=== PATIENT | male | born 1960 | race Caucasian/White ===

== ENCOUNTER 2018-09-24 18:47 | Emergency (ER) | payer BC ==
[2018-09-24 18:53] VITALS: TEMP 97.6; BMI 28.5
--- NOTE | 2018-09-24 19:31 | PDOC ---
History of Present Illness <Carley Selbysy - Last Filed: 09/24/18 20:00> - General History Source: Patient Exam Limitations: No Limitations <VerodaveKatherin I - Last Filed: 09/24/18 20:36> - General Chief Complaint: Chest Pain Stated Complaint: CHEST BURNING Time Seen by Provider: 09/24/18 19:09 - History of Present Illness Initial Comments: 09/24/18 20:00 The patient is a 57 year old male, with no significant PMH who presents to the emergency department with a burning sensation to the chest for the past 3 days. Patient endorses having significant stressors recently. Patient admits to having a similar burning sensation in the past for which he did not seek medical evaluation. Patient denies any personal cardiac history or known cardiac history in his family. Patient is a non-smoker. Patient denies having abnormal EKGs in the past. Patient has not taken any antacids at home. The patient denies chest pain, shortness of breath, headache and dizziness. Denies fever, chills, nausea, vomit, diarrhea and constipation. Denies dysuria, frequency, urgency and hematuria. Allergies: NKA Past surgical history: None reported. Social history: No reported alcohol, drug or cigarette use. Adult ROS General: No fevers or chills, no weakness, no weight loss HEENT: No change in vision. No sore throat,. No ear pain CardioVascular: No chest pain or shortness of breath Respiratory:No cough, or wheezing. Gastrointestinal: no nausea, vomiting, diarrhea or constipation, No rectal bleeding Genitourinary: No dysuria, hematuria, or frequency Musculoskeletal: No joint or muscle pain or swelling Neurologic: No headache, vertigo, dizziness or loss of consciousness Psychiatric: nor depression Skin: No rashes or easy bruising Endocrine: no increased thirst or abnormal weight change Allergic: no skin or latex allergy All other systems reviewed and normal Adult Exam: General: Well-nourished well-developed individual, no acute distress HEENT: Throat: Normal, tonsils normal, no erythema or exudate Neck: Supple, no meningeal signs, no lymphadenopathy Eyes::Pupils equal reactive and round, extraocular motion intact Chest: Nontender to palpation Cardiac: S1-S2 normal, regular rate and rhythm, no murmurs rubs or gallops Respiratory: Lungs clear to auscultation bilateral Abdomen: Soft, nondistended, normal bowel sounds, nontender to palpation diffusely Extremities: Warm, dry, no cyanosis, clubbing, or edema Skin: No rashes Neuro: Alert and oriented x3, nonfocal exam, grossly intact, normal gait Psych: Normal mood and affect (Kelley Selby) 09/24/18 19:56 A portion of this note was documented by scribe services under my direction. I have reviewed the details of the note, within reason, and agree with the documentation with the following case summary and management plan written by me. Patient treated in the ED. Nursing notes are reviewed and incorporated into the medical decision-making. Vital signs reviewed. Medical decision making: This is a 57-year-old male who comes in complaining of a burning sensation in his epigastric lower chest area substernally for several weeks now. The patient says he is under a lot of stress and has not taken anything for the discomfort. Patient said he has had similar discomfort in the past but never had it evaluated. Patient denies any cardiac risk factors including no history of hypertension. However it is noted the patient is quite hypertensive here in the emergency room with a blood pressure 177 systolic. Patient denies history of high cholesterol or diabetes. Patient denies family history of coronary artery disease. Patient is not a smoker and denies any use of recreational drugs. Workup initiated including EKG, CBC, comp, chest x-ray. EKG shows normal sinus rhythm at a rate of [address] changes laterally. There is also a prolonged QT. 09/24/18 20:34 Patient's symptoms completely resolved with an antacid/Pepcid. Patient feels better. The patient's workup was negative for any acute pathology. Patient's heart score is 3. The patient discharged home told to follow-up with his doctor for further evaluation. Patient also told to get an antacid and take it as needed if symptoms return (Katherin De La Cruz I) Past History <Kelley Selby - Last Filed: 09/24/18 20:00> - Past Medical History COPD: No GI Disorders: Yes (GASTRITIS) Disorders: Yes (KIDNEY STONE) - Immunization History Td Vaccination: Yes Immunization Up to Date: No - Suicide/Smoking/Psychosocial Hx Smoking Status: No Smoking History: Never smoked Have you smoked in the past 12 months: No Number of Cigarettes Smoked Daily: 0 Information on smoking cessation initiated: No Hx Alcohol Use: No Drug/Substance Use Hx: No Substance Use Type: None <Katherin De La Cruz I - Last Filed: 09/24/18 20:36> - Past Medical History Allergies/Adverse Reactions: Allergies Allergy/AdvReac Type Severity Reaction Status Date / Time No Known Drug Allergies Allergy Verified 09/24/18 18:49 ENVIRONMENTAL Allergy Uncoded 09/24/18 18:49 Home Medications: Ambulatory Orders NK [No Known Home Medication] 09/24/18 - Vital Signs Last Vital Signs Temp Pulse Resp BP Pulse Ox 97.6 F 82 18 170/88 99 09/24/18 18:47 09/24/18 18:47 09/24/18 18:47 09/24/18 18:47 09/24/18 18:47 Heart Score/ECG Review - History History: Slightly suspicious - Electrocardiogram EKG: Non specific repolarization disturbance - Age Age: 45-65 - Risk Factors Risk Factors Heart Score: Yes Hx Hypertension Based on the list above the patient has:: 1-2 risk factors - Troponin Troponin: </= normal limit - Score Heart Score - Total: 3 <Katherin De La Cruz I - Last Filed: 09/24/18 20:36> ED Treatment Course - LABORATORY CBC & Chemistry Diagram: 09/24/18 19:15 09/24/18 19:15 <Kelley Selby - Last Filed: 09/24/18 20:00> - LABORATORY CBC & Chemistry Diagram: 09/24/18 19:15 09/24/18 19:15 <Katherin De La Cruz I - Last Filed: 09/24/18 20:36> - ADDITIONAL ORDERS Additional order review: Laboratory Results 09/24/18 09/24/18 09/24/18 19:15 19:15 19:15 Sodium 138 Potassium 3.7 Chloride 103 Carbon Dioxide 26 Anion Gap 9 BUN 16 Creatinine 0.8 Creat Clearance w eGFR > 60 Random Glucose 91 D Calcium 9.0 Total Bilirubin 0.7 AST 23 D ALT 26 Alkaline Phosphatase 52 Creatine Kinase 104 Troponin I < 0.03 Total Protein 7.2 Albumin 4.3 09/24/18 19:15 RBC 5.34 MCV 89.8 MCHC 33.5 RDW 12.0 MPV 9.4 Neutrophils % 56.3 Lymphocytes % 31.1 D Monocytes % 7.7 Eosinophils % 4.3 D Basophils % 0.6 - Medications Given in the ED: ED Medications Discontinued Medications Generic Name Dose Route Start Last Admin Trade Name Chloé PRN Reason Stop Dose Admin Famotidine/Sodium Chloride 20 mg in 50 mls @ 100 mls/hr 09/24/18 19:37 19:50 Pepcid 20 Mg Premixed Ivpb - IVPB 09/24/18 20:06 100 mls/hr ONCE ONE Administration *DC/Admit/Observation/Transfer <Kelley Selby - Last Filed: 09/24/18 20:00> - Discharge Dispostion Decision to Admit order: No <Katherin De La Cruz I - Last Filed: 09/24/18 20:36> Diagnosis at time of Disposition: Epigastric discomfort - Discharge Dispostion Disposition: HOME Condition at time of disposition: Stable - Referrals Referrals: Segundo Kapadia MD [Primary Care Provider] - - Patient Instructions Printed Discharge Instructions: DI for Atypical Chest Pain Additional Instructions: Get herself some Pepcid or Tums or Zantac and take as directed on the box if the burning sensation returns. Call you doctor in the morning get an appointment to follow-up.. Return to the emergency department immediately with ANY new, persistent or worsening symptoms. Continue any medications as previously prescribed by your physician. You should follow up with your primary doctor as soon as possible regarding today's emergency department visit. . Please make sure your doctor reviews the results of your emergency evaluation. Thank you for coming to the Emergency Department today for your care. It was a pleasure to see you today. Please note that your evaluation is INCOMPLETE until you follow-up with your doctor. - Post Discharge Activity
[2018-09-24] MEDS ORDERED: FAMOTIDINE 20 MG/50 ML IVPB 20 MG/50 ML MG IVPB ONE ×2 (19:37→19:47)
[2018-09-24 20:01] LABS: BASO % 0.6 % (0-2.0); EOS % 4.3 % (0-4.5); HEMOGLOBIN 16.1 GM/dl (11.7-16.9); LYMPH % 31.1 % (8-40); MCH 30.1 pg (25.7-33.7); MCHC 33.5 g/dl (32.0-35.9); MEAN CELL VOLUME 89.8 fl (80-96); MEAN PLT VOLUME 9.4 fl (7.5-11.1); MONO % 7.7 % (3.8-10.2); NEUT % 56.3 % (42.8-82.8); PLATELET COUNT 229 K/MM3 (134-434); RBC 5.34 M/mm3 (4.00-5.60); WHITE BLOOD COUNT 9.4 K/mm3 (4.0-10.8)
[2018-09-24 20:10] LABS: ALBUMIN 4.3 g/dl (3.5-5.0); ALK PHOS 52 U/L (32-92); ANION GAP 9 MMOL/L (8-16); BILIRUBIN,TOTAL 0.7 mg/dl (0.2-1.0); BLOOD UREA NITROGEN 16 mg/dl (7-18); CHLORIDE 103 mmol/L (98-107); CO2 26 mmol/L (22-28); CREATININE 0.8 mg/dl (0.6-1.3); GLUCOSE,RANDOM 91 mg/dl (74-106); POTASSIUM 3.7 mmol/L (3.5-5.1); SGOT/AST 23 U/L (10-42); SGPT/ALT 26 U/L (10-40); SODIUM 138 mmol/L (136-145); TOT PROT 7.2 g/dl (6.4-8.3)
[2018-09-24 20:38] VITALS: BP 147/88; PULSE 76
--- NOTE | 2018-09-25 12:36 | EKG ---
Test Reason : Blood Pressure : / mmHG Vent. Rate : 087 BPM Atrial Rate : 087 BPM P-R Int : 134 ms QRS Dur : 082 ms QT Int : 402 ms P-R-T Axes : 071 -03 013 degrees QTc Int : 483 ms NORMAL SINUS RHYTHM PROLONGED QT ABNORMAL ECG Confirmed by MD NEERAJ, CORDELIA ([id number]) on 09/25/2018 12:36:35 PM Referred By: DR CARVER Confirmed By:CORDELIA PICKARD MD
== END 2018-09-24 20:45 | disposition home or self-care (01) ==
LOC: FER 18:47
PROC: 3E033GC Introduction of Other Therapeutic Substance into Peripheral Vein, Percutaneous Approach (ICD-10-PCS; principal; 2018-09-24)
DX: R10.13 Epigastric pain (principal)
CPT/HCPCS: 36415; 80053; 82550; 84484; 85025; 93005; 99285-25

== ENCOUNTER 2018-12-09 13:26 | Emergency (ER) | payer BC ==
[2018-12-09 13:33] VITALS: BP 134/89; PULSE 80; TEMP 97.8; BMI 26.9
--- NOTE | 2018-12-09 13:54 | PDOC ---
History of Present Illness - General Chief Complaint: Pain Stated Complaint: RT FLANK PAIN Time Seen by Provider: 12/09/18 13:53 - History of Present Illness Initial Comments: 12/09/18 16:11 Chief complaint: Epigastric and right upper quadrant pain with radiation to the right flank and right mid back today. History of present illness: Symptoms as noted above accompanied by dyspepsia, belching, which the patient frequently experiences due to stress. 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 Review of systems: No dysuria frequency urgency hematuria. No vomiting or diarrhea. No chest pain, shortness of breath. No fever/chills. Remainder systems reviewed and negative Past medical history: Kidney stone several years ago, resolved spontaneously. GERD. Anxiety. Social/family history as noted above otherwise negative. No tobacco alcohol or nonprescription drugs Physical exam: Alert and oriented well-developed well-nourished no acute distress cheerful and cooperative Afebrile, vital signs normal PERRLA, fundi benign, ENT clear Neck supple without bruit mass or nodes Chest clear CV regular without murmur rub or gallop Abdomen nondistended. Bowel sounds normal. Soft without mass tenderness organomegaly. No CVAT Neurological intact exam: No discharge. No urethral lesions. Testes descended bilaterally. No hernias. Impression: Dyspepsia, possible early gastritis, secondary to underlying disease and aggravated stress Plan: Antacids and proton pump inhibitor. [place] diet. Return to ER if symptoms worsen otherwise follow-up with primary physician and GI specialist as directed Past History - Past Medical History Allergies/Adverse Reactions: Allergies Allergy/AdvReac Type Severity Reaction Status Date / Time No Known Drug Allergies Allergy Verified 12/09/18 13:27 ENVIRONMENTAL Allergy Uncoded 12/09/18 13:27 Home Medications: Ambulatory Orders Amlodipine Besylate 5 mg PO DAILY 12/09/18 COPD: No GI Disorders: Yes (GASTRITIS) Disorders: Yes (KIDNEY STONE) HTN: Yes - Immunization History Td Vaccination: Yes Immunization Up to Date: No - Suicide/Smoking/Psychosocial Hx Smoking Status: No Smoking History: Never smoked Have you smoked in the past 12 months: No Number of Cigarettes Smoked Daily: 0 Information on smoking cessation initiated: No Hx Alcohol Use: No Drug/Substance Use Hx: No Substance Use Type: None *Physical Exam - Vital Signs Last Vital Signs Temp Pulse Resp BP Pulse Ox 97.8 F 80 20 134/89 98 12/09/18 13:26 12/09/18 13:26 12/09/18 13:26 12/09/18 13:26 12/09/18 13:26 Moderate Sedation - Procedure Monitoring Vital Signs: Procedure Monitoring Vital Signs Temperature 97.8 F 12/09/18 13:26 Pulse Rate 80 12/09/18 13:26 Respiratory Rate 20 12/09/18 13:26 Blood Pressure 134/89 12/09/18 13:26 O2 Sat by Pulse Oximetry (%) 98 12/09/18 13:26 *DC/Admit/Observation/Transfer Diagnosis at time of Disposition: Gastritis Qualifiers: Gastritis type: unspecified gastritis Chronicity: acute Gastritis bleeding: without bleeding Qualified Code(s): K29.00 - Acute gastritis without bleeding - Discharge Dispostion Disposition: HOME Condition at time of disposition: Stable Decision to Admit order: No - Referrals Referrals: Pj Garibay MD [Staff Physician] - - Patient Instructions Printed Discharge Instructions: DI for Gastritis Additional Instructions: Light diet. Omeprazole daily as directed. Return ER if symptoms worsen otherwise follow-up primary physician and GI specialist as directed. - Post Discharge Activity
[2018-12-09 14:19] LABS: PH,URINE 5.5 (4.5-8); URINE APPEARANCE Clear; URINE BILIRUBIN Negative (NEGATIVE); URINE COLOR Yellow; URINE GLUCOSE (UA) Negative (NEGATIVE); URINE KETONE Negative (NEGATIVE); URINE LEUK ESTERASE Negative (NEGATIVE); URINE NITRITE Negative (NEGATIVE); URINE PROTEIN Negative (NEGATIVE); URINE UROBILINOGEN 0.2 (0.2-1.0)
[2018-12-09 14:36] LABS: URINE WBC 0-2 (0-2)
== END 2018-12-09 14:54 | disposition home or self-care (01) ==
LOC: FER 13:26
DX: K29.00 Acute gastritis without bleeding (principal); I10 Essential (primary) hypertension
CPT/HCPCS: 81003; 81015; 99281-25

== ENCOUNTER 2019-05-01 21:17 | Emergency (ER) | payer BC ==
[2019-05-01 21:22] VITALS: BP 143/85; PULSE 97; TEMP 98.5; BMI 26.9
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
== END 2019-05-01 23:44 | disposition home or self-care (01) ==
LOC: JERFT 21:17 → JER 21:17
DX: S80.12XA Contusion of left lower leg, initial encounter (principal); I10 Essential (primary) hypertension; N20.0 Calculus of kidney
CPT/HCPCS: 93971-TC; 99282-25

== ENCOUNTER 2021-06-11 04:44 | Day surgery (SDC) | payer BC ==
[2021-06-10 15:03] VITALS: BMI 28.3
[2021-06-11] MEDS ORDERED: BUPIVACAINE HCL/PF 0.5% (5MG/ML) 10 ML VIAL ONE (07:41)
[2021-06-11] MEDS ORDERED: BUPIVACAINE HCL/PF 0.5% (5MG/ML) 10 ML VIAL IJ ONE (13:25)
[2021-06-11] MEDS ORDERED: IOHEXOL 180 MG/1 ML ML IJ ONE (13:25)
[2021-06-11 13:49] VITALS: BP 148/83; PULSE 76; TEMP 98.6
== END 2021-06-11 13:50 | disposition home or self-care (01) ==
LOC: JASU-SURG 04:44
PROVIDERS: ATTEND Pain Medicine Pain Medicine
PROC: BR14YZZ Fluoroscopy of Cervical Facet Joint(s) using Other Contrast (ICD-10-PCS; 2021-06-11)
PROC: 3E0T3BZ Introduction of Anesthetic Agent into Peripheral Nerves and Plexi, Percutaneous Approach (ICD-10-PCS; principal; 2021-06-11 12:00)
DX: M47.812 Spondylosis without myelopathy or radiculopathy, cervical region (principal)
CPT/HCPCS: 76000-TC-FY

== ENCOUNTER 2024-11-05 08:27 | Observation (INO) | payer BC, OTHER ==
[2024-11-05 08:39] VITALS: BMI 25.7
[2024-11-05] MEDS: ALBUTEROL SO4 2.5/IPRATROPIUM 0.5 INH SOL 3 ML VIAL.NEB. NEB SCH ×3 (09:06→17:59)
[2024-11-05 10:34] LABS: HEMATOCRIT 42.5 % (35.4-49); HEMOGLOBIN 14.3 G/dL (11.7-16.9); MCH 30.4 pg (25.7-33.7); MCHC 33.7 g/dl (32.0-35.9); MEAN CELL VOLUME 90.3 fl (80-96); PLATELET COUNT 208.2 10^3/uL (134-434); RBC 4.71 10^6/uL (4.00-5.60); RDW 13.9 % (11.9-15.9); WHITE BLOOD COUNT 13.1 10^3/uL (4.0-10.8)
[2024-11-05 10:35] LABS: ALBUMIN 3.8 g/dl (3.4-5.0); BILIRUBIN,TOTAL 0.7 mg/dl (0.2-1); CALCIUM 8.7 mg/dl (8.5-10.1); CREATININE 0.9 mg/dl (0.6-1.3); POTASSIUM 3.9 mmol/L (3.5-5.1); TOT PROT 6.3 g/dl (6.4-8.2)
[2024-11-05 11:05] LABS: PLATELET ESTIMATE ADEQUATE
[2024-11-05] MEDS ORDERED: OSELTAMIVIR PHOSPHATE 75 MG CAPSULE ONE (11:05)
[2024-11-05] MEDS: OSELTAMIVIR PHOSPHATE 75 MG CAPSULE PO ONE (11:09)
[2024-11-05] MEDS ORDERED: PIPERACILLIN/TAZOB 4.5 GM 4.5 GM in DEXTROSE 5%-WATER 100 ML IVPB SCH (15:00)
[2024-11-05] MEDS: PIPERACILLIN/TAZOB 4.5 GM 4.5 GM in DEXTROSE 5%-WATER 100 ML IVPB SCH (17:59)
[2024-11-05] MEDS: LACTATED RINGERS SOLUTION 1,000 ML/1,000 ML INFUS.BAG IV SCH (17:59)
[2024-11-05] MEDS ORDERED: ONDANSETRON 4 MG/2 ML VIAL ONE (18:17)
[2024-11-05] MEDS: ONDANSETRON 4 MG/2 ML VIAL IVPUSH PRN (18:20)
[2024-11-05] MEDS: ACETAMINOPHEN 325 MG TABLET (FP) PO PRN (18:20)
[2024-11-05 20:16] VITALS: RESP 18
[2024-11-05] MEDS: guaiFENesin/D-METHORPHAN TAB.ER.12H PO SCH (21:09)
[2024-11-06 09:25] LABS: ALBUMIN 3.3 g/dl (3.4-5.0); BILIRUBIN,TOTAL 0.8 mg/dl (0.2-1); CALCIUM 8.4 mg/dl (8.5-10.1); CREATININE 0.8 mg/dl (0.6-1.3); PHOSPHOROUS 3.1 (2.5-4.9); POTASSIUM 3.6 mmol/L (3.5-5.1); TOT PROT 5.4 g/dl (6.4-8.2)
[2024-11-06] MEDS: ENOXAPARIN NA (PORCINE) 40 MG/0.4 ML DISP.SYRIN SQ SCH (09:58)
[2024-11-06] MEDS: amLODIPine BESYLATE 5 MG TABLET (FP) PO SCH (09:58)
[2024-11-06] MEDS: predniSONE 20 MG TABLET (UD) PO SCH (09:58)
[2024-11-06] MEDS ORDERED: predniSONE 20 MG TABLET (UD) PO SCH (10:00)
[2024-11-06 10:32] LABS: BASO % 0.1 % (0-2.0); EOS % 0.1 % (0-4.5); HEMATOCRIT 37.3 % (35.4-49); HEMOGLOBIN 12.9 GM/dL (11.7-16.9); MCH 30.3 pg (25.7-33.7); MCHC 34.4 g/dl (32.0-35.9); MONO % 10.2 % (3.8-10.2); NEUT % 73.6 % (42.8-82.8); PLATELET COUNT 194 10^3/uL (134-434); RBC 4.24 M/mm3 (4.00-5.60); RDW 13.5 % (11.9-15.9); WHITE BLOOD COUNT 10.9 K/mm3 (4.0-10.0)
[2024-11-07 09:11] LABS: CALCIUM 8.4 mg/dl (8.5-10.1); CREATININE 0.8 mg/dl (0.6-1.3); POTASSIUM 3.5 mmol/L (3.5-5.1)
[2024-11-07] MEDS: BUDESONIDE/FORMETEROL FUMARATE 80/4.5 mcg INHALER IH SCH (09:50)
[2024-11-07 09:53] LABS: BASO % 0.1 % (0-2.0); EOS % 0.2 % (0-4.5); HEMATOCRIT 37.1 % (35.4-49); HEMOGLOBIN 12.8 GM/dL (11.7-16.9); LYMPH % 14.3 % (8-40); MCH 30.1 pg (25.7-33.7); MCHC 34.6 g/dl (32.0-35.9); MEAN PLT VOLUME 8.8 fl (7.5-11.1); NEUT % 75.4 % (42.8-82.8); PLATELET COUNT 241 10^3/uL (134-434); RBC 4.27 M/mm3 (4.00-5.60); WHITE BLOOD COUNT 12.9 K/mm3 (4.0-10.0)
[2024-11-07 10:44] VITALS: BP 132/75; PULSE 89; TEMP 98
== END 2024-11-07 12:45 | disposition home or self-care (01) ==
LOC: FER 08:27 → INTOOBSV 11:00 → UNDOADMOB 11:00 → FM/S 11:00
PROVIDERS: ADMIT Internal Medicine; ATTEND Internal Medicine
PROC: 3E0F7GC Introduction of Other Therapeutic Substance into Respiratory Tract, Via Natural or Artificial Opening (ICD-10-PCS; principal; 2024-11-05)
PROC: 3E023GC Introduction of Other Therapeutic Substance into Muscle, Percutaneous Approach (ICD-10-PCS; 2024-11-05)
PROC: 3E0337Z Introduction of Electrolytic and Water Balance Substance into Peripheral Vein, Percutaneous Approach (ICD-10-PCS; 2024-11-05)
PROC: 3E03329 Introduction of Other Anti-infective into Peripheral Vein, Percutaneous Approach (ICD-10-PCS; 2024-11-05)
PROC: 3E033GC Introduction of Other Therapeutic Substance into Peripheral Vein, Percutaneous Approach (ICD-10-PCS; 2024-11-05)
DX: J11.1 Influenza due to unidentified influenza virus with other respiratory manifestations (principal); I10 Essential (primary) hypertension; J45.909 Unspecified asthma, uncomplicated
CPT/HCPCS: 36415; 71046-TC-FY; 80048; 80053; 83735; 83880; 84100; 84484; 85025; 85027; 87040; 93005; 94640; 99285-25; G0378